=== PATIENT | female | born 1975 | race Two or more races ===

== ENCOUNTER → 2016-11-17 | Outpatient (CLI) | payer OTHER ==
[~2016-11-17] MED LIST: ALLEGRA60 MG PO; CRESTOR5 MG PO; LIPOFEN150 MG PO; PANTOPRAZOLE SO40 MG PO
--- NOTE | ~2016-11-17 | CR63 ---
[facility] A Service of [facility] & [facility] / [facility] RADIOLOGY TEXT RESULTS PATIENT: JANIE EATON LOCATION: [facility] : 77 UNIT #: [id number] AGE: [address]: Megan Pascual MD SEX: F ORDER DR: [id number] [facility] [address] [place], [place] [address] [id number] O MR#: [id number] Acc #: [id number] NAME: JANIE EATON : 1975 SEX: F STUDY DATE/TIME: 11/17/2016 15:09 UNIT: [facility] ROOM: STUDY DESCRIPTION: CR Chest 2 View Attending Physician: Megan Pascual M.D. Referring Physician: Megan Pascual M.D. Ordering Physician: Megan Pascual M.D. Primary Care Physician: Megan Pascual M.D. MEDICAL IMAGING REPORT This report is preliminary unless electronic signature is present EXAM PA and lateral chest HISTORY Cough and wheezing for 2 months FINDINGS The cardiac size and pulmonary vascularity are normal. No infiltrates or effusions. Remainder of the chest is negative. IMPRESSION No acute findings. Negative chest. Lungs are clear. Dictated by... Adrian Almaguer M.D. THIS IS AN ELECTRONICALLY VERIFIED REPORT Adrian Almaguer M.D. at 11/18/2016 12:03 AM DFL/to TD: 11/17/2016 18:00 JOB #: [id number] MEDICAL IMAGING REPORT Page 1 of 1 COPY
== END | disposition home or self-care (01) ==
LOC: CRAD 14:57
DX: R05 Cough (principal)
CPT/HCPCS: 71020